=== PATIENT | female | born 1945 | race Caucasian/White ===

== ENCOUNTER 2019-07-10 14:39 | Observation (INO) | payer BC, MEDICARE ==
[~2019-07-10] VITALS: Ht 152.4 cm; Wt 64.5 kg
[~2019-07-10 14:39] MED LIST: ALPR.25 PO; ALPR.5 PO; B-121000 MC2 PO; CALC.25 PO; CHOL10002; Cipro250 MG PO; EFFEXOR PO; FISH1000 PO; FOLI1 PO; FOLI400 PO; FOLTX TABLET1 EACH PO; FURO20 PO; GABA300 PO; GLUCOSAMIN/CHONDROIT PO; HYDACE5 PO; HYDR1TAB94 PO; LAMO25 PO; LEVSOD150 PO; LEVSOD175 PO; LITH300C PO; LITHIUM PO; Lithium Carbon450 MG PO; METO50 PO; METTREX2.5 PO; Micro-K10 MEQ PO; NITR100 PO; NYST100TO TOP; Naprosyn500 MG PO; OMEG1CAP30 PO; OXYACE5T PO; OXYC5 PO; POTCHL10ER PO; PROBIOTIC; QUET25 PO; SODIUM PO; Senna8.6 MG PO; TRAM50 PO; TRAZ150T57; TRAZ150T57 PO; TRAZODONE 150 MG PO; VENL150ER PO; VENL75ER PO; ZOLP10 PO; ZOLP5 PO
[2019-07-10 15:26] LABS: BASOPHILS ABSOLUTE AUTO 0.03 K/mm3 (0.00-0.23); BASOPHILS PERCENT AUTO 0 % (0-2); EOSINOPHILS ABSOLUTE AUTO 0.01 K/mm3 (0.00-0.68); EOSINOPHILS PERCENT AUTO 0 % (0-6); Hematocrit 36.3 % (33.0-51.0); Hemoglobin 11.9 g/dL (11.5-16.0); IMMATURE GRAN ABSOLUTE AUTO 0.05 K/mm3 (0.00-0.10); IMMATURE GRAN PERCENT AUTO 1 % (0-1); LYMPHOCYTES ABSOLUTE AUTO 0.65 K/mm3 (0.84-5.20); LYMPHOCYTES PERCENT AUTO 7 % (21-46); MONOCYTES ABSOLUTE AUTO 0.54 K/mm3 (0.16-1.47); MONOCYTES PERCENT AUTO 5 % (4-13); Mean Corpuscular HGB 28.3 pg (26.0-34.0); Mean Corpuscular HGB Conc 32.8 g/dL (31.5-36.5); Mean Corpuscular Volume 86 fL (80-100); Mean Platelet Volume 10.3 fL (9.1-12.4); NEUTROPHILS ABSOLUTE AUTO 8.67 K/mm3 (1.96-9.15); NEUTROPHILS PERCENT AUTO 87 % (41-73); Platelet Count 264 K/mm3 (150-400); RDW Coefficient Variation 13.1 % (11.7-14.2); RDW Standard Deviation 41.4 fL (35.1-46.3); White Blood Cell Count 9.95 K/mm3 (4.00-11.30)
[2019-07-10 15:42] LABS: International Normalized Ratio 1.02; Prothrombin Time Results 10.9 Sec (9.7-11.5)
[2019-07-10 15:45] LABS: Source, Urine Catheter
[2019-07-10 15:50] LABS: Bilirubin, Urine Neg (Neg); Blood, Urine Neg (Neg); Glucose Qualitative, Urine Neg (Neg); Ketones, Urine 3+ (Neg); Leukocyte Esterase, Urine Neg (Neg); Nitrite, Urine Neg (Neg); Protein, Urine Neg (Neg); Specific Gravity, Urine 1.015 (1.003-1.022); Urobilinogen, Urine NORM (Normal)
[2019-07-10 16:05] LABS: Appearance, Urine Clear (Clear); Color, Urine Pale Yellow (P-Yellow)
[2019-07-10 16:32] LABS: U Amphetamine Screen Not Detected; U Barbituate Screen Not Detected; U Benzodiazapine Screen DETECTED; U Buprenorphine Screen Not Detected; U Cannabinoids Screen Not Detected; U Cocaine Screen Not Detected; U Methadone Screen Not Detected; U Methamphetamine Screen Not Detected; U Opiates Screen Not Detected; U Oxycodone Screen Not Detected; U Phencyclidine Screen Not Detected; U Propoxyphene Screen Not Detected
[2019-07-10 16:38] LABS: Alanine Aminotransfer (ALT/SGP 14 U/L (12-78); Albumin, Blood 3.4 g/dL (3.4-5.0); Alk Phos 116 U/L (50-136); Anion Gap 9 mmol/L (6-16); Aspartate Aminotrans (AST/SGOT 20 U/L (12-37); Bilirubin, Total 1.1 mg/dL (0.1-1.0); Blood Urea Nitrogen 10 mg/dL (8-24); Bun/Creatinine Ratio 20.4 (12.0-20.0); CO2, Blood 22 mmol/L (21-32); Calcium, Blood 9.5 mg/dL (8.5-10.1); Chloride, Blood 97 mmol/L (98-108); Creatinine, Blood 0.49 mg/dL (0.40-1.00); Globulin, Blood 3.3 g/dL (2.2-4.0); Glomerular Filtration Rate >60 (60-); Glucose, Blood 107 mg/dL (70-99); Potassium, Blood 3.9 mmol/L (3.5-5.5); Sodium, Blood 128 mmol/L (136-145); Total Protein, Blood 6.7 g/dL (6.4-8.2)
[2019-07-10 16:42] LABS: Ethanol (Alcohol), Blood, Med <3 mg/dL
[2019-07-10] MEDS ORDERED: ALPR1 PO (20:04)
[2019-07-10] MEDS ORDERED: OLAN10 PO (20:04)
[2019-07-10] MEDS ORDERED: LEVSOD137 PO (20:05)
[2019-07-10] MEDS ORDERED: VENL150ER PO (20:05)
[2019-07-10] MEDS ORDERED: FURO20 PO (20:06)
[2019-07-10] MEDS ORDERED: IBANDRONATE SO150 MG PO (20:06)
[2019-07-10] MEDS ORDERED: POTCHL10ER PO (20:07)
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
[2019-07-11 02:42] LABS: BASOPHILS ABSOLUTE AUTO 0.02 K/mm3 (0.00-0.23); BASOPHILS PERCENT AUTO 0 % (0-2); EOSINOPHILS ABSOLUTE AUTO 0.04 K/mm3 (0.00-0.68); EOSINOPHILS PERCENT AUTO 1 % (0-6); Hematocrit 36.5 % (33.0-51.0); Hemoglobin 11.9 g/dL (11.5-16.0); IMMATURE GRAN ABSOLUTE AUTO 0.02 K/mm3 (0.00-0.10); IMMATURE GRAN PERCENT AUTO 0 % (0-1); LYMPHOCYTES ABSOLUTE AUTO 1.46 K/mm3 (0.84-5.20); LYMPHOCYTES PERCENT AUTO 21 % (21-46); MONOCYTES ABSOLUTE AUTO 0.64 K/mm3 (0.16-1.47); MONOCYTES PERCENT AUTO 9 % (4-13); Mean Corpuscular HGB Conc 32.6 g/dL (31.5-36.5); Mean Corpuscular Volume 86 fL (80-100); Mean Platelet Volume 9.4 fL (9.1-12.4); NEUTROPHILS ABSOLUTE AUTO 4.73 K/mm3 (1.96-9.15); NEUTROPHILS PERCENT AUTO 68 % (41-73); Platelet Count 268 K/mm3 (150-400); RDW Coefficient Variation 13.2 % (11.7-14.2); RDW Standard Deviation 41.4 fL (35.1-46.3); Red Blood Cell Count 4.25 M/mm3 (3.80-5.20); White Blood Cell Count 6.91 K/mm3 (4.00-11.30)
[2019-07-11 03:17] LABS: Troponin I 0.068 ng/mL (0.000-0.040)
[2019-07-11 03:27] LABS: Albumin, Blood 3.3 g/dL (3.4-5.0); Anion Gap 5 mmol/L (6-16); Blood Urea Nitrogen 8 mg/dL (8-24); Bun/Creatinine Ratio 14.8 (12.0-20.0); CO2, Blood 26 mmol/L (21-32); Calcium, Blood 9.9 mg/dL (8.5-10.1); Chloride, Blood 113 mmol/L (98-108); Creatinine, Blood 0.54 mg/dL (0.40-1.00); Glomerular Filtration Rate >60 (60-); Glucose, Blood 117 mg/dL (70-99); Phosphorus, Blood 2.2 mg/dL (2.5-4.9); Potassium, Blood 3.7 mmol/L (3.5-5.5)
[2019-07-11 03:28] LABS: Sodium, Blood 144 mmol/L (136-145)
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
[2019-07-11] MEDS ORDERED: LEVSOD50 PO (15:53)
[2019-07-11] MEDS ORDERED: CYAFAPYR PO (15:55)
[2019-07-11] MEDS ORDERED: THERA-D2000 UNIT PO (15:56)
[2019-07-11] MEDS ORDERED: FOLI400 PO (15:56)
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
== END 2019-07-11 17:26 | disposition home health service (06) ==
LOC: ER 14:39 → MEDS 14:40
PROVIDERS: Physician Assistant; ADMIT Internal Medicine
DX: E87.1 Hypo-osmolality and hyponatremia (principal); E86.0 Dehydration; R47.1 Dysarthria and anarthria; E05.80 Other thyrotoxicosis without thyrotoxic crisis or storm; R79.9 Abnormal finding of blood chemistry, unspecified; F31.9 Bipolar disorder, unspecified; E03.9 Hypothyroidism, unspecified; I10 Essential (primary) hypertension; Z87.891 Personal history of nicotine dependence; Z88.8 Allergy status to other drugs, medicaments and biological substances; Z88.2 Allergy status to sulfonamides; Z79.899 Other long term (current) drug therapy
CPT/HCPCS: 36415; 70450; 71046; 80053; 80069; 81003; 84439; 84443; 84484; 85025; 85610; 93005; 93010; 93306; 93880; 96360; 96361; 96372; 97116; 97162; 99285-25; A9270-GY; G0378; G0480; J1650; J7030

== ENCOUNTER 2019-08-01 11:29 | Emergency (ER) | payer BC, MEDICARE ==
[~2019-08-01] VITALS: Ht 152.4 cm; Wt 63.5 kg
[~2019-08-01 11:29] MED LIST changes: +ALPR1 PO; +CYAFAPYR PO; +IBANDRONATE SO150 MG PO; +LEVSOD137 PO; +LEVSOD50 PO; +OLAN10 PO; +THERA-D2000 UNIT PO
[2019-08-01] MEDS ORDERED: Nyamyc15 GM TOP (11:36)
[2019-08-01] MEDS ORDERED: Nystatin15 GM TOP (11:36)
[2019-08-01 11:42] LABS: Source, Urine Catheter
[2019-08-01 11:55] LABS: Bilirubin, Urine Neg (Neg); Blood, Urine Neg (Neg); Glucose Qualitative, Urine Neg (Neg); Ketones, Urine Neg (Neg); Leukocyte Esterase, Urine Neg (Neg); Nitrite, Urine Neg (Neg); Protein, Urine Neg (Neg); Urobilinogen, Urine NORM (Normal)
[2019-08-01 12:10] LABS: Appearance, Urine Clear (Clear); Color, Urine Yellow (P-Yellow)
== END 2019-08-01 13:55 | disposition home or self-care (01) ==
LOC: ER 11:29
PROVIDERS: Emergency Medicine
DX: R62.7 Adult failure to thrive (principal); R21 Rash and other nonspecific skin eruption; R53.1 Weakness; Z88.2 Allergy status to sulfonamides; Z88.8 Allergy status to other drugs, medicaments and biological substances; Z79.899 Other long term (current) drug therapy; F31.9 Bipolar disorder, unspecified; E03.9 Hypothyroidism, unspecified; Z87.891 Personal history of nicotine dependence; Z72.3 Lack of physical exercise; Z96.651 Presence of right artificial knee joint; W18.30XA Fall on same level, unspecified, initial encounter
CPT/HCPCS: 81003; 99284; P9612

== ENCOUNTER 2019-08-23 15:22 | Emergency (ER) | payer BC, MEDICARE ==
[~2019-08-23] VITALS: Ht 160 cm; Wt 56.7 kg
[~2019-08-23 15:22] MED LIST changes: +Nyamyc15 GM TOP; +Nystatin15 GM TOP
[2019-08-23] MEDS ORDERED: FUROSEMIDE20 MG PO (15:31)
[2019-08-23] MEDS ORDERED: K-Dur10 MEQ (15:31)
== END 2019-08-23 18:20 | disposition home or self-care (01) ==
LOC: ER 15:22
DX: S80.01XA Contusion of right knee, initial encounter (principal); F31.9 Bipolar disorder, unspecified; Z87.891 Personal history of nicotine dependence; Z88.2 Allergy status to sulfonamides; Z88.8 Allergy status to other drugs, medicaments and biological substances; Z79.899 Other long term (current) drug therapy; W19.XXXA Unspecified fall, initial encounter
CPT/HCPCS: 73562-RT; 99283-25; A9270

== ENCOUNTER 2022-10-28 19:48 | Inpatient (IN) | payer MEDICARE ==
[~2022-10-28] VITALS: Ht 157.5 cm; Wt 58.4 kg
[~2022-10-28 19:48] MED LIST changes: +FUROSEMIDE20 MG PO; +K-Dur10 MEQ
[2022-10-28 20:19] LABS: BASOPHILS ABSOLUTE AUTO 0.04 K/mm3 (0.00-0.23); BASOPHILS PERCENT AUTO 1 % (0-2); EOSINOPHILS ABSOLUTE AUTO 0.04 K/mm3 (0.00-0.68); EOSINOPHILS PERCENT AUTO 1 % (0-6); Hematocrit 36.8 % (33.0-51.0); Hemoglobin 12.1 g/dL (11.5-16.0); IMMATURE GRAN ABSOLUTE AUTO 0.01 K/mm3 (0.00-0.10); IMMATURE GRAN PERCENT AUTO 0 % (0-1); LYMPHOCYTES PERCENT AUTO 20 % (21-46); MONOCYTES ABSOLUTE AUTO 0.42 K/mm3 (0.16-1.47); MONOCYTES PERCENT AUTO 8 % (4-13); Mean Corpuscular HGB 27.7 pg (26.0-34.0); Mean Corpuscular HGB Conc 32.9 g/dL (31.5-36.5); Mean Corpuscular Volume 84 fL (80-100); Mean Platelet Volume 9.9 fL (9.1-12.4); NEUTROPHILS ABSOLUTE AUTO 3.55 K/mm3 (1.96-9.15); NEUTROPHILS PERCENT AUTO 70 % (41-73); Platelet Count 257 K/mm3 (150-400); RDW Coefficient Variation 13.4 % (11.7-14.2); RDW Standard Deviation 41.7 fL (35.1-46.3); Red Blood Cell Count 4.37 M/mm3 (3.80-5.20); White Blood Cell Count 5.06 K/mm3 (4.00-11.30)
[2022-10-28 20:35] LABS: Bicarbonate Venous 15.2 mmol/L (24.0-30.0); PCO2 Venous 17.8 mmHg (38-42); pH Blood Venous 7.42 (7.34-7.37)
[2022-10-28 20:44] LABS: Source, Urine Straight Cath
[2022-10-28 20:46] LABS: International Normalized Ratio 1.36
[2022-10-28 20:46] LABS: Appearance, Urine Clear (Clear); Bilirubin, Urine Neg (Neg); Blood, Urine Neg (Neg); Color, Urine Yellow (P-Yellow); Glucose Qualitative, Urine Neg (Neg); Ketones, Urine 1+ (Neg); Leukocyte Esterase, Urine Neg (Neg); Nitrite, Urine Neg (Neg); Protein, Urine Neg (Neg); Urobilinogen, Urine NORM (Normal)
[2022-10-28 20:49] LABS: Magnesium, Blood 1.8 mg/dL (1.6-2.4); Salicylate <1.7 mg/dL (2.8-20.0); Thyroid Stimulating Hormone 0.343 uIU/mL (0.360-4.800); Valproic Acid 11.5 ug/mL (50.0-100.0)
[2022-10-28 20:51] LABS: Alanine Aminotransfer (ALT/SGP 21 U/L (12-78); Albumin, Blood 3.9 g/dL (3.4-5.0); Albumin/Globulin Ratio 1.2 (0.8-1.8); Alk Phos 136 U/L (50-136); Anion Gap 9 mmol/L (6-16); Aspartate Aminotrans (AST/SGOT 16 U/L (12-37); Bilirubin, Total 0.8 mg/dL (0.1-1.0); Blood Urea Nitrogen 12 mg/dL (8-24); Bun/Creatinine Ratio 17.5 (12.0-20.0); CO2, Blood 23 mmol/L (21-32); Calcium, Blood 9.9 mg/dL (8.5-10.1); Chloride, Blood 109 mmol/L (98-108); Creatinine, Blood 0.69 mg/dL (0.40-1.00); Globulin, Blood 3.2 g/dL (2.2-4.0); Glomerular Filtration Rate 89 (60-); Glucose, Blood 126 mg/dL (70-99); Potassium, Blood 3.5 mmol/L (3.5-5.5); Sodium, Blood 141 mmol/L (136-145); Total Protein, Blood 7.1 g/dL (6.4-8.2)
[2022-10-28 20:52] LABS: Acetaminophen, Random <2.0 ug/mL (10.0-30.0)
[2022-10-28] MEDS ORDERED: VENL150ER PO (21:22)
[2022-10-28] MEDS ORDERED: LEVSOD100 PO (21:22)
[2022-10-28] MEDS ORDERED: OLAN20 MM (21:23)
[2022-10-28] MEDS ORDERED: ZOLPIDEM TART12.5 MG PO (21:23)
[2022-10-28] MEDS ORDERED: DIVA250ER PO (21:24)
[2022-10-28] MEDS ORDERED: FURO20 PO (21:24)
[2022-10-28] MEDS ORDERED: POTA10T PO (21:25)
[2022-10-28 23:03] LABS: Free Thyroxine 1.39 ng/dL (0.70-1.60); Triiodothyronine, Free 1.04 pg/mL (2.18-3.98)
[2022-10-29] VITALS (12 sets, daily range): BP systolic 121–148; BP diastolic 57–100
--- NOTE | 2022-10-29 03:26 | NUR ---
PT TO ROOM ICU 14 FROM EMERGENCY DEPARTMENT, ARRIVING AT 0245. SLIDE TRANSFERRED TO BED. PT DOES OPEN EYES AND REACHES OUT. PT DOES NOT FOLLOW ANY COMMANDS. RESISTS CARE. TRIES TO SIT UPRIGHT IN BED WITHOUT REGARD TO HER SAFETY. PT PLACED WITH CURTAINS TO ROOM OPEN TO ALLOW FOR BETTER VISUALIZATION OF PATIENT FOR HER SAFETY. BED ALARM PLACED ON BED. WILL REVIEW CHART AND PLAN OF CARE FOR THIS PT.
[2022-10-29 03:48] LABS: BASOPHILS ABSOLUTE AUTO 0.05 K/mm3 (0.00-0.23); BASOPHILS PERCENT AUTO 1 % (0-2); EOSINOPHILS ABSOLUTE AUTO 0.02 K/mm3 (0.00-0.68); EOSINOPHILS PERCENT AUTO 0 % (0-6); Hematocrit 31.3 % (33.0-51.0); Hemoglobin 10.5 g/dL (11.5-16.0); IMMATURE GRAN ABSOLUTE AUTO 0.01 K/mm3 (0.00-0.10); IMMATURE GRAN PERCENT AUTO 0 % (0-1); LYMPHOCYTES ABSOLUTE AUTO 0.79 K/mm3 (0.84-5.20); LYMPHOCYTES PERCENT AUTO 12 % (21-46); MONOCYTES ABSOLUTE AUTO 0.48 K/mm3 (0.16-1.47); MONOCYTES PERCENT AUTO 7 % (4-13); Mean Corpuscular HGB 28.3 pg (26.0-34.0); Mean Corpuscular HGB Conc 33.5 g/dL (31.5-36.5); Mean Corpuscular Volume 84 fL (80-100); Mean Platelet Volume 9.8 fL (9.1-12.4); NEUTROPHILS ABSOLUTE AUTO 5.38 K/mm3 (1.96-9.15); NEUTROPHILS PERCENT AUTO 80 % (41-73); Platelet Count 209 K/mm3 (150-400); RDW Coefficient Variation 13.4 % (11.7-14.2); RDW Standard Deviation 41.6 fL (35.1-46.3); Red Blood Cell Count 3.71 M/mm3 (3.80-5.20); White Blood Cell Count 6.73 K/mm3 (4.00-11.30)
[2022-10-29 04:18] LABS: Bilirubin, Total 0.5 mg/dL (0.1-1.0); Bun/Creatinine Ratio 14.4 (12.0-20.0); Calcium, Blood 8.3 mg/dL (8.5-10.1); Creatinine, Blood 0.63 mg/dL (0.40-1.00); Globulin, Blood 2.9 g/dL (2.2-4.0); Potassium, Blood 3.3 mmol/L (3.5-5.5); Total Protein, Blood 5.9 g/dL (6.4-8.2)
--- NOTE | 2022-10-29 05:13 | NUR ---
PT HAS BEEN SLEEPING SOME THEN AWAKENS AND TRIES TO SIT UP IN BED. PULLS AT LINES AND TUBES. PT'S EFFORTS ARE WEAK. MAINTAINING CLOSE MONIORING OF PT. SHE IS NOT ABLE TO FOLLOW ANY DIRECTIONS AT THIS TIME. NO S/S DISTRESS. CALL MADE TO DR SCHULTE CONCERNING THIS AM'S LABS. ORDERS RECEIVED. WILL CONTINUE TO MONITOR PT, AND WILL REPORT OFF TO ONCOMING RN.
--- NOTE | 2022-10-29 10:26 | NUR ---
PT STARTLES AWAKE TO VOICE BUT QUICKLY GOES BACK TO SLEEP AND SLEEPS UNTIL DISTRUBED. DOES NOT FOLLOW ANY COMMANDS. LOCALIZES PAIN. MOVES EXTREMITIES SPONTANEOUSLY AND MOVES SELF FROM BACK TO R SIDE IN BED. HAS JERKING MOVEMENTS OF EXTREMITIES WHEN AWAKE. GOOD URINE OUTPUT WITH PUREWICK. PT TRANSFERED TO PCU 3, REPORT GIVEN TO CASSIE WOLF.
--- NOTE | 2022-10-29 11:53 | NUR ---
CARE ASSUMPTION This rn assumed care at 1017. patient transfered from icu bed via slider sheet. patient is nonresponsive, but is alert. responds to painful stimuli. patient appears to be pain free, chest pain free, and no shortness of breath. see shift assessment for further detials. md segal in room to see patient. jose manuel in placed and changed this shift. plan of care is up to date. patient has remote monitoring in place.
--- NOTE | 2022-10-29 13:02 | NUR ---
low temperature-call to doc this rn called me tlaang to inform of patients core temperature at 94.7. kermit huger in place, heat turned up in room, and warm blanket on.
--- NOTE | 2022-10-29 18:38 | NUR ---
shift summary patient neuro remains unchaged. patient is still no responsive, expect to verbal stimuli. patient kermit hugger off due to temperature being therapuetic now. kermit hugger removed at 1830. vital signs stable. call light within reach. plan of care is up to date.
[2022-10-30 05:01] LABS: Hematocrit 32.4 % (33.0-51.0); Hemoglobin 10.7 g/dL (11.5-16.0); Mean Corpuscular HGB 28.2 pg (26.0-34.0); Mean Corpuscular Volume 85 fL (80-100); Mean Platelet Volume 10.2 fL (9.1-12.4); Platelet Count 230 K/mm3 (150-400); RDW Coefficient Variation 13.9 % (11.7-14.2); RDW Standard Deviation 43.3 fL (35.1-46.3)
[2022-10-30 05:15] VITALS: BP 145/79
--- NOTE | 2022-10-30 05:32 | NUR ---
SHIFT SUMMARY LETHARGIC DURING BEGINNING OF SHIFT, MOANING OUT OFTEN AND PULLING ON TELE, REQUIRING A 1:1 SITTER. MUCH MORE ALERT THIS AM, ABLE TO STATE SHE IS IN THE HOSPITAL, MUMBLED SPEECH BUT ABLE TO SPEAK IN SENTENCES. SPO2 >92% ON RA. TELE SR 70-90S. IV FLUIDS INFUSING PER EMAR. VSS, NO ACUTE NEEDS AT THIS TIME. BED IN LOWEST POSITION WITH CALL LIGHT IN REACH. WILL CONTINUE TO MONITOR AND REPORT TO ONCOMING RN.
[2022-10-30 05:40] LABS: Bun/Creatinine Ratio 7.7 (12.0-20.0); Calcium, Blood 9.4 mg/dL (8.5-10.1); Creatinine, Blood 0.65 mg/dL (0.40-1.00); Potassium, Blood 3.4 mmol/L (3.5-5.5)
[2022-10-30 08:44] VITALS: BP 137/64
[2022-10-30 11:22] VITALS: BP 143/62
--- NOTE | 2022-10-30 11:26 | NUR ---
CARE ASSUMPTION this rn assumed care at 0700. vital signs stable. sitter in room due to pulling at lines and getting out of bed. this has improved and going to go back to virtual sitter. patient is alert and oriented x3. patient is forgetful and confused at times. patient reports no pain, shortness of breath or chest pain/pressure. see shift assessment for furhter detials. md segal in to see patient this morning. discussed plan of care. plan of care up to date.
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
[2022-10-30 15:12] VITALS: BP 148/68
--- NOTE | 2022-10-30 17:24 | NUR ---
shift summary patient neuro remains unchaged. vital signs stable. patient worked with speech and physical therapy today. patient straight cathed once due to not being able to pee, bladder scan showed >400 output. informed md segal. patient has had an episodes on incontinence since then. patient become more anxious, pulling at lines and trying to get out of bed this afternoon/early evening. called md segal, see orders. patient is able to feed herself dinner. plan of care is up to date. no acute changes this shift. updated on plan of care and was in to see patient today.
[2022-10-30 20:19] VITALS: BP 157/75
[2022-10-30 23:36] VITALS: BP 133/69
[2022-10-31 03:56] VITALS: BP 157/67
[2022-10-31 04:39] LABS: Bun/Creatinine Ratio 10.5 (12.0-20.0); Calcium, Blood 9.6 mg/dL (8.5-10.1); Creatinine, Blood 0.67 mg/dL (0.40-1.00); Potassium, Blood 3.8 mmol/L (3.5-5.5)
--- NOTE | 2022-10-31 05:33 | NUR ---
SHIFT SUMMARY PATIENT ALERT AND ORIENTED X3. ABLE TO MAKE NEEDS KNOWN. SITTER IN ROOM FOR SAFETY D/T INCREASED CONFUSION THE PREVIOUS NOC SHIFT. PATIENT NEEDED STRAIGHT CATH DURING THIS SHIFT D/T RETENTION. PT TOLERATED WELL. VITALS STABLE. PATIENT CALM AND COOPERATIVE WITH CARE. VIRTUAL PRODUCTION ZONE LEADER IN PLACE. FIRE/IGNITION SAFETY ASSESSMENT AND EDUCATION COMPLETED. PUREWICK IN PLACE WITH 700 MLS OF OUTPUT NOTED. BED IN LOWEST POSITION AND CALL LIGHT WITHIN REACH. THIS RN WILL REPORT TO ONCOMING RN.
[2022-10-31 08:10] VITALS: BP 114/99
[2022-10-31 12:09] VITALS: BP 122/82
[2022-10-31 16:02] VITALS: BP 164/77
--- NOTE | 2022-10-31 17:27 | NUR ---
SHIFT SUMMARY; ASSUMED CARE AT 0700. A/A/OX3 WITH INTERMITANT CONFUSION. SPOUSE AT BEDSIDE TODAY AND STATES AT TIMES IS LIKE THIS AT HOME. FEEDS SELF TODAY AND TAKES PO FLUIDS INDEPENDANTLY. PURWICK IN PLACE WITH GOOD OUTPUT T/O SHIFT. SITTER AT BEDSIDE DUE TO CONFUSION AND CLIMBING OUT OF BED LAST NOC. CALM AND COOPERATIVE TODAY. VSS, NO ACUTE MEDICAL CHANGES, WILL CONTINUE TO MONITOR AND TREAT UNTIL CHANGE OF SHIFT.
[2022-10-31 19:57] VITALS: BP 132/72
[2022-10-31 23:48] VITALS: BP 158/64
[2022-11-01 04:17] VITALS: BP 119/59
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
[2022-11-01 04:51] LABS: Hematocrit 35.8 % (33.0-51.0); Hemoglobin 11.7 g/dL (11.5-16.0); Mean Corpuscular HGB 28.3 pg (26.0-34.0); Mean Corpuscular HGB Conc 32.7 g/dL (31.5-36.5); Mean Corpuscular Volume 87 fL (80-100); Mean Platelet Volume 10.2 fL (9.1-12.4); Platelet Count 239 K/mm3 (150-400); RDW Coefficient Variation 13.8 % (11.7-14.2); RDW Standard Deviation 43.9 fL (35.1-46.3); Red Blood Cell Count 4.14 M/mm3 (3.80-5.20); White Blood Cell Count 6.55 K/mm3 (4.00-11.30)
[2022-11-01 05:14] LABS: Calcium, Blood 9.5 mg/dL (8.5-10.1); Creatinine, Blood 0.67 mg/dL (0.40-1.00); Potassium, Blood 3.8 mmol/L (3.5-5.5)
[2022-11-01 07:44] VITALS: BP 145/71
[2022-11-01 15:15] VITALS: BP 122/71
--- NOTE | 2022-11-01 17:25 | NUR ---
SHIFT SUMMARY; ASSUMED CARE AT 0700. A/A/OX3, INTERMITANT CONFUSION AT TIMES. FEEDING SELF, REPOSITIONS SELF ON BED, PURWICK INPLACE FOR INCONTINANCE. WORKED WITH PT/OT TODAY. VSS, NO ACUTE MEDICAL CHANGES, WILL CONTINUE TO MONITOR AND TREAT UNTIL CHANGE OF SHIFT.
--- NOTE | 2022-11-01 17:50 | NUR ---
PT ARRIVED TO ROOM AT 1650. NO DISTRESS NOTED AND COOPERATIVE OF CARE. AOX3 AND ABLE TO MAKE NEEDS KNOWN. BED ALARM IN PLACE AND CALL WITHIN REACH . WILL CONTINUE TO MONITOR. NO IGNITION HAZARDS TO BE FOUND AND HAVE BEEN EVALUATED HOURLY.
[2022-11-01 19:44] VITALS: BP 130/68
[2022-11-02 03:28] VITALS: BP 170/75
[2022-11-02 03:30] VITALS: BP 142/70
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
[2022-11-02 07:36] VITALS: BP 178/70
[2022-11-02 14:45] VITALS: BP 117/64
--- NOTE | 2022-11-02 19:05 | NUR ---
PT DISCHARGED LATE TODAY RIGHT BEFORE SHIFT CHANGE HAD PUT HIS HOME PHONE ON MUTE. PT'S HAD ALL PAPERWORK REVIEWED AND EDUCATIONAL MATERIAL SENT WITH HIM. PT WAS A 1 PERSON TO STAND AND GET TO WHEELCHAIR. ALL PERSONAL BELONGINGS COLLECTED AND SENT WITH PT. PT ESCORTED OUT VIA WHEELCHAIR TO ENTRANCE.
== END 2022-11-02 18:55 | disposition home health service (06) | DRG 93 ==
LOC: ER 19:48 → PCU 10-29 01:53 → MEDS 10-29 01:53 → ICUE 10-29 01:53 → PCU 10-29 10:18 → MEDS 11-01 17:11 → ENPENDDIS 11-02 10:52 → MEDS 11-02 18:55
PROVIDERS: Internal Medicine; Student in an Organized Health Care Education/Training Program; ADMIT Internal Medicine
DX: G92.8 Other toxic encephalopathy (principal); R41.82 Altered mental status, unspecified; G89.29 Other chronic pain; M54.9 Dorsalgia, unspecified; E03.9 Hypothyroidism, unspecified; R13.10 Dysphagia, unspecified; T43.95XA Adverse effect of unspecified psychotropic drug, initial encounter; I10 Essential (primary) hypertension; F32.9 Major depressive disorder, single episode, unspecified; Z96.651 Presence of right artificial knee joint; Z87.891 Personal history of nicotine dependence; Z98.890 Other specified postprocedural states; Z88.2 Allergy status to sulfonamides; Z88.8 Allergy status to other drugs, medicaments and biological substances; Z79.890 Hormone replacement therapy; Z79.899 Other long term (current) drug therapy
CPT/HCPCS: 36415; 51701; 70450; 71045; 80048; 80053; 80164; 81003; 82140; 82803; 82947; 83605; 83735; 84439; 84443; 84481; 85025; 85027; 85610; 87040; 92526; 92610; 93005; 93010; 96361-59; 96365-59; 96366-59; 96375-59; 97110; 97110-CQ; 97116-CQ; 97161; 97165; 97530; 97535; 99285-25; A9270; G0480; J0696; J1650; J2310; J3480; J7030; J7070

== ENCOUNTER 2022-11-17 16:10 | Inpatient (IN) | payer MEDICARE ==
[~2022-11-17] VITALS: Ht 157.5 cm; Wt 49.9 kg
[~2022-11-17 16:10] MED LIST changes: +DIVA250ER PO; +LEVSOD100 PO; +OLAN20 MM; +POTA10T PO; +ZOLPIDEM TART12.5 MG PO
[2022-11-17 16:57] LABS: BASOPHILS ABSOLUTE AUTO 0.05 K/mm3 (0.00-0.23); BASOPHILS PERCENT AUTO 0 % (0-2); EOSINOPHILS PERCENT AUTO 0 % (0-6); Hematocrit 41.3 % (33.0-51.0); Hemoglobin 12.9 g/dL (11.5-16.0); IMMATURE GRAN ABSOLUTE AUTO 0.04 K/mm3 (0.00-0.10); IMMATURE GRAN PERCENT AUTO 0 % (0-1); LYMPHOCYTES ABSOLUTE AUTO 1.05 K/mm3 (0.84-5.20); LYMPHOCYTES PERCENT AUTO 9 % (21-46); MONOCYTES PERCENT AUTO 8 % (4-13); Mean Corpuscular HGB 27.6 pg (26.0-34.0); Mean Corpuscular HGB Conc 31.2 g/dL (31.5-36.5); Mean Corpuscular Volume 88 fL (80-100); Mean Platelet Volume 10.4 fL (9.1-12.4); NEUTROPHILS ABSOLUTE AUTO 9.21 K/mm3 (1.96-9.15); NEUTROPHILS PERCENT AUTO 82 % (41-73); Platelet Count 299 K/mm3 (150-400); RDW Coefficient Variation 14.6 % (11.7-14.2); Red Blood Cell Count 4.68 M/mm3 (3.80-5.20); White Blood Cell Count 11.25 K/mm3 (4.00-11.30)
[2022-11-17 17:16] LABS: Albumin, Blood 3.8 g/dL (3.4-5.0); Bun/Creatinine Ratio 34.4 (12.0-20.0); Calcium, Blood 11.3 mg/dL (8.5-10.1); Creatinine, Blood 1.31 mg/dL (0.40-1.00); Potassium, Blood 3.5 mmol/L (3.5-5.5); Total Protein, Blood 7.8 g/dL (6.4-8.2)
[2022-11-17 18:00] LABS: Source, Urine Straight Cath
[2022-11-17 18:27] LABS: Appearance, Urine Clear (Clear); Bilirubin, Urine Neg (Neg); Blood, Urine Neg (Neg); Color, Urine Yellow (P-Yellow); Glucose Qualitative, Urine Neg (Neg); Ketones, Urine 1+ (Neg); Leukocyte Esterase, Urine Neg (Neg); Nitrite, Urine Neg (Neg); Protein, Urine 2+ (Neg); Specific Gravity, Urine 1.025 (1.003-1.022); Urobilinogen, Urine NORM (Normal)
[2022-11-17 18:34] LABS: Amorphous Light (0-Heavy); Bacteria Mod /hpf; Red Blood Cells, Urine Not Seen /hpf (0-2); Squamous Epithelial Cells Rare /hpf (Few); White Blood Cells, Urine 0-2 /hpf (0-5)
[2022-11-17 19:03] LABS: Magnesium, Blood 2.8 mg/dL (1.6-2.4)
[2022-11-17 19:05] LABS: Thyroid Stimulating Hormone 0.141 uIU/mL (0.360-4.800)
[2022-11-17 20:47] LABS: Anion Gap 6 mmol/L (6-16); Blood Urea Nitrogen 41 mg/dL (8-24); Bun/Creatinine Ratio 37.3 (12.0-20.0); CO2, Blood 24 mmol/L (21-32); Chloride, Blood 129 mmol/L (98-108); Free Thyroxine 1.83 ng/dL (0.70-1.60); Glomerular Filtration Rate 51 (60-); Glucose, Blood 100 mg/dL (70-99); Potassium, Blood 3.6 mmol/L (3.5-5.5); Sodium, Blood 159 mmol/L (136-145); Valproic Acid 20.1 ug/mL (50.0-100.0)
[2022-11-17] MEDS ORDERED: ALPR.5 PO (21:46)
[2022-11-17] MEDS ORDERED: POTA10T PO (21:47)
[2022-11-17] MEDS ORDERED: FURO20 PO (21:49)
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
[2022-11-17 22:50] VITALS: BP 155/58
[2022-11-18 01:05] LABS: Adenovirus Not Detected (NOT DETECT); Bordetella pertussis Not Detected (NOT DETECT); Chlamydophila pneumoniae Not Detected (NOT DETECT); Coronavirus 229E Not Detected (NOT DETECT); Coronavirus HKU1 Not Detected (NOT DETECT); Coronavirus NL63 Not Detected (NOT DETECT); Coronavirus OC43 Not Detected (NOT DETECT); Human Metapneumovirus Not Detected (NOT DETECT); Human Rhinovirus/Enterovirus Not Detected (NOT DETECT); Influenza A/2009-H1 Not Detected (NOT DETECT); Influenza A/H1 Not Detected (NOT DETECT); Influenza A/H3 Not Detected (NOT DETECT); Influenza B Not Detected (NOT DETECT); Mycoplasma pneumoniae Not Detected (NOT DETECT); Parainfluenza Virus 1 Not Detected (NOT DETECT); Parainfluenza Virus 2 Not Detected (NOT DETECT); Parainfluenza Virus 3 Not Detected (NOT DETECT); Parainfluenza Virus 4 Not Detected (NOT DETECT); Respiratory Syncytial Virus Not Detected (NOT DETECT); SARS-Cov-2 (COVID-19), BioFire Not Detected (NOT DETECT)
[2022-11-18 01:10] LABS: Hematocrit 39.1 % (33.0-51.0); Hemoglobin 12.3 g/dL (11.5-16.0); Mean Corpuscular HGB 27.7 pg (26.0-34.0); Mean Corpuscular HGB Conc 31.5 g/dL (31.5-36.5); Mean Corpuscular Volume 88 fL (80-100); Mean Platelet Volume 10.5 fL (9.1-12.4); Platelet Count 213 K/mm3 (150-400); RDW Coefficient Variation 14.5 % (11.7-14.2); RDW Standard Deviation 46.3 fL (35.1-46.3); Red Blood Cell Count 4.44 M/mm3 (3.80-5.20); White Blood Cell Count 12.29 K/mm3 (4.00-11.30)
[2022-11-18 01:26] LABS: Magnesium, Blood 2.4 mg/dL (1.6-2.4)
[2022-11-18 01:42] LABS: Bun/Creatinine Ratio 39.2 (12.0-20.0); Calcium, Blood 9.8 mg/dL (8.5-10.1); Creatinine, Blood 1.02 mg/dL (0.40-1.00); Potassium, Blood 3.2 mmol/L (3.5-5.5)
[2022-11-18 02:46] VITALS: BP 144/66
--- NOTE | 2022-11-18 04:26 | NUR ---
SHIFT SUMMARY; NO ACUTE CHANGES SINCE ADMIT. THE PT HAS BEEN RESTING IN BED SINCE ADMIT, OCCASIONALLY THE PT ATTEMPTS OOB BUT SHE IS SOMEWHAT REDIRECTABLE. THE PT HAS A 1;1 SITTER IN HER ROOM. THE PTS NA WENT UP FROM 159 TO 162, PER DR. SCHULTE CHANGE PTS FLUIDS TO JUST D-5 AT 100 MLS/HR X1.5L. THE PT IS STILL NON-VERBAL AT THIS TIME BUT SHE DOES FOLLOW COMMANDS AND LOOKS AT YOU WHEN YOU ARE TALKING TO HER. THE PT DENIES ANY CHEST PAIN/PRESSURE, SOB OR N/V. THE PT DOES NOT APPEAR TO BE IN ANY PAIN AT THIS TIME WELL. CURRENTLY THE PT IS SLEEPING IN BED WITH THE BED IN THE LOWEST POSITION AND THE CALL LIGHT AT BEDSIDE. FIRE SAFETY MAINTAINED T/O THE SHIFT.
[2022-11-18 06:31] LABS: Albumin, Blood 3.2 g/dL (3.4-5.0); Calcium, Blood 9.9 mg/dL (8.5-10.1); Creatinine, Blood 0.84 mg/dL (0.40-1.00); Globulin, Blood 3.1 g/dL (2.2-4.0); Potassium, Blood 3.1 mmol/L (3.5-5.5); Total Protein, Blood 6.3 g/dL (6.4-8.2)
[2022-11-18 09:32] VITALS: BP 153/74
[2022-11-18 11:54] LABS: Albumin, Blood 3.1 g/dL (3.4-5.0); Bilirubin, Total 0.9 mg/dL (0.1-1.0); Bun/Creatinine Ratio 39.5 (12.0-20.0); Creatinine, Blood 0.76 mg/dL (0.40-1.00); Globulin, Blood 3.1 g/dL (2.2-4.0); Potassium, Blood 3.1 mmol/L (3.5-5.5); Total Protein, Blood 6.2 g/dL (6.4-8.2)
[2022-11-18 14:31] VITALS: BP 151/67
[2022-11-18 17:19] LABS: Albumin, Blood 3.4 g/dL (3.4-5.0); Bun/Creatinine Ratio 39.4 (12.0-20.0); Calcium, Blood 10.2 mg/dL (8.5-10.1); Creatinine, Blood 0.64 mg/dL (0.40-1.00); Globulin, Blood 3.4 g/dL (2.2-4.0); Potassium, Blood 3.1 mmol/L (3.5-5.5); Total Protein, Blood 6.8 g/dL (6.4-8.2)
--- NOTE | 2022-11-18 19:43 | NUR ---
SHIFT SUMMARY: PT A&O X1-2. PT COOPERATIVE WITH CARE. RECEIVED IN REPORT PT HAD NOT VOIDED SINCE ADMISSION. PUREWICK WAS IN PLACE BUT NOTHING DRAINED. BLADDER SCANNED PT AROUND 1000 WITH A URINE OF OVER 500. ATTEMPTED TO HAVE PT VOID ON BEDSIDE COMMODE WITH NO SUCCESS. RECEIVED ORDER FOR STRAIGHT CATH. WHEN ATTEMPTING TO STRAIGHT CATH, PT FOUGHT BACK AND CLOSED LEGS TIGHTLY WHILE YELLING OUT "HELP." GAVE PT A BREAK. PT FINALLY ABLE TO URINATE AND HAVE LG BM. AT BEGINNING OF SHIFT PT ONLY ABLE TO ANSWER YES/NO. PT ABLE TO ANSWER SOME QUESTIONS AT END OF SHIFT. PT WOULD COUGH/CHOKE EVERY TIME TAKING BITE OF REGULAR FOOD OR WITH THIN LIQUIDS. CALLED HOSPITALIST AND GOT ORDER FOR SPEECH EVAL. MEPILEX PLACED ON COCCYX. COCCYX BLANCHABLE. NEW MEPILEX PLACED ON LUMP ON UPPER BACK AND R. ELBOW FOR PROTECTION. SITTER IN ROOM DURING SHIFT. CALL LIGHT IN REACH. BED IN LOWEST POSITION. REPORT GIVEN TO ONCOMING RN.
[2022-11-18 19:58] VITALS: BP 101/73
[2022-11-18 23:36] LABS: Albumin, Blood 2.8 g/dL (3.4-5.0); Bilirubin, Total 0.8 mg/dL (0.1-1.0); Bun/Creatinine Ratio 32.4 (12.0-20.0); Calcium, Blood 9.5 mg/dL (8.5-10.1); Creatinine, Blood 0.62 mg/dL (0.40-1.00); Globulin, Blood 2.8 g/dL (2.2-4.0); Potassium, Blood 3.5 mmol/L (3.5-5.5); Total Protein, Blood 5.6 g/dL (6.4-8.2)
[2022-11-19 04:48] VITALS: BP 117/56
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
[2022-11-19 05:22] LABS: BASOPHILS ABSOLUTE AUTO 0.03 K/mm3 (0.00-0.23); BASOPHILS PERCENT AUTO 0 % (0-2); EOSINOPHILS ABSOLUTE AUTO 0.13 K/mm3 (0.00-0.68); EOSINOPHILS PERCENT AUTO 2 % (0-6); Hemoglobin 11.6 g/dL (11.5-16.0); IMMATURE GRAN ABSOLUTE AUTO 0.03 K/mm3 (0.00-0.10); IMMATURE GRAN PERCENT AUTO 0 % (0-1); LYMPHOCYTES ABSOLUTE AUTO 1.45 K/mm3 (0.84-5.20); LYMPHOCYTES PERCENT AUTO 21 % (21-46); MONOCYTES ABSOLUTE AUTO 0.59 K/mm3 (0.16-1.47); MONOCYTES PERCENT AUTO 9 % (4-13); Mean Corpuscular HGB 27.6 pg (26.0-34.0); Mean Corpuscular HGB Conc 31.4 g/dL (31.5-36.5); Mean Corpuscular Volume 88 fL (80-100); Mean Platelet Volume 11.1 fL (9.1-12.4); NEUTROPHILS ABSOLUTE AUTO 4.73 K/mm3 (1.96-9.15); NEUTROPHILS PERCENT AUTO 68 % (41-73); Platelet Count 202 K/mm3 (150-400); White Blood Cell Count 6.96 K/mm3 (4.00-11.30)
[2022-11-19 05:52] LABS: Bun/Creatinine Ratio 25.3 (12.0-20.0); Calcium, Blood 9.5 mg/dL (8.5-10.1); Creatinine, Blood 0.67 mg/dL (0.40-1.00); Potassium, Blood 3.4 mmol/L (3.5-5.5)
[2022-11-19 07:12] VITALS: BP 129/60
[2022-11-19 15:03] VITALS: BP 121/52
--- NOTE | 2022-11-19 19:39 | NUR ---
PT PLEASANTLY CONFUSED TODAY, ABLE TO TELL ME HER NAME AND , NOT AGE, HUSB NAME. KYPHOSIS NOTED. VSS. DENIES PAIN. PER SWALLOW EVAL, MEDS WHOLE WITH APPLESAUCE. DID GIVE K+ IV TODAY. IVF RUNNING. IN TO VISIT. NO OTHER CONCERNS NOTED. BED IN LOW POSITION, CALL LITE IN REACH. BED ALARM ON FOR SAFETY
[2022-11-19 20:21] VITALS: BP 126/58
--- NOTE | 2022-11-20 01:43 | NUR ---
PATIENT CONFUSED AND PULLED PIV. TRY TO GET OUT OF BED AND ALARM ACTIVATED. BACK IN BED AND NEW PIV PLACED. CALL LIGHT IN REACH AND BED ALARM ON. WCTM.
[2022-11-20 03:16] VITALS: BP 136/60
--- NOTE | 2022-11-20 04:19 | NUR ---
SHIFT SUMMARY PATIENT HAD NO ACUTE CHANGES. ALERT TO SELF WITH CONFUSION. OUT OF BED ATTEMPT X TWO. PULLED PIV AND NEW ONE PLACED. D5 INFUSING AT 100 mL/HR. TELE MONITOR NSR 69. PUREWICK IN PLACE. DENIES PAIN, SOB, AND N/V. VSS/AFEBRILE. CALL LIGHT IN REACH. BED IN LOWEST POSITION AND ALARM ACTIVATED. WILL CONTINUE TO MONITOR UNTIL DAY SHIFT NURSE ASSUMES CARE.
[2022-11-20 05:52] LABS: Bun/Creatinine Ratio 21.7 (12.0-20.0); Calcium, Blood 9.6 mg/dL (8.5-10.1); Creatinine, Blood 0.65 mg/dL (0.40-1.00); Phosphorus, Blood 1.7 mg/dL (2.5-4.9)
[2022-11-20 07:13] VITALS: BP 131/57
[2022-11-20 15:02] VITALS: BP 134/58
--- NOTE | 2022-11-20 18:49 | NUR ---
PT PLEASANTLY CONFUSED TODAY. DID IMPROVE COGNITION SOME TODAY. ABLE TO TELL ME NAME AGE , HUSB NAME, TODAYS DATE. PRESIDENT. STILL FEARFUL TO FALL WHEN WORKING WITH PT/OT. 1 MIN ASST FWW G BELT . IVF CONTINUING. NO NEW CONCERNS NOTED. BED IN LOW POSITION, CALL LITE IN REACH, BED ALARM ON FOR SAFETY
[2022-11-20 19:51] VITALS: BP 117/53
[2022-11-21 04:47] VITALS: BP 124/50
--- NOTE | 2022-11-21 05:06 | NUR ---
SHIFT SUMMARY- PT WAS ORIENTED AT THE START OF THE SHIFT. AFTER LIGHTS OUT SHE BECAME FEARFUL AND WAS CALLING OUT FOR HELP. MULTIPLE STAFF ASSISTED IN REORIENTING THE PT T/O THE NIGHT. PT REMOVED HER IV, IT WAS REPLACED, VEINS ARE ROLEY AND SMALL, DIFFICULT TO PLACE IV THE PT WAS CONFUSED AND WOULD NOT STOP MOVING. IV WRAPPED LOOSLY WITH COBAN, SHE WAS PULLING AT THAT, END OF COBAN WAS TAPED WITH PAPER TAPE, THEN A SLEVE WAS PLACED OVER THE TOP. PT FINALLY STOPPED TRYING TO REMOVE THE IV. D5 RUNNING CURRENTLY. PT IN BED SLEEPING NO S&S OF DISTRESS NOTED, CALL LIGHT IN REACH.
[2022-11-21 06:01] LABS: Albumin, Blood 2.5 g/dL (3.4-5.0); Anion Gap 6 mmol/L (6-16); Blood Urea Nitrogen 11 mg/dL (8-24); Bun/Creatinine Ratio 18.1 (12.0-20.0); CO2, Blood 24 mmol/L (21-32); Chloride, Blood 117 mmol/L (98-108); Creatinine, Blood 0.61 mg/dL (0.40-1.00); Glomerular Filtration Rate 91 (60-); Glucose, Blood 100 mg/dL (70-99); Phosphorus, Blood 2.4 mg/dL (2.5-4.9); Potassium, Blood 4.2 mmol/L (3.5-5.5); Sodium, Blood 147 mmol/L (136-145)
[2022-11-21 08:21] VITALS: BP 150/56
[2022-11-21 16:10] VITALS: BP 113/73
--- NOTE | 2022-11-21 16:41 | NUR ---
SUMMARY: PT PLEASANT CONFUSED TODAY. WORSENING AFTER 4PM. MORE CONFUSED. DENIES PAIN, REORIENTS EASILY, BUT NEEDS TO BE DONE REGULARLY. FEEDING SELF. 1 ASST TO BSC. PT ALEISHA LAST NITE AND EARLY THIS AM. AWOKE, SHE IMPROVED. SHE SLEPT LATE THIS AM. DISCUSSED WITH DR AMIN. JOSH D/C. NO OTHER CONCERNS NOTED. BED IN LOW POSITION, CALL LITE IN REACH, BED ALARM ON FOR SAFETY
[2022-11-21 19:08] VITALS: BP 137/65
[2022-11-22 02:13] VITALS: BP 145/104
[2022-11-22 05:16] LABS: Albumin, Blood 2.8 g/dL (3.4-5.0); Anion Gap 5 mmol/L (6-16); Blood Urea Nitrogen 7 mg/dL (8-24); Bun/Creatinine Ratio 12.1 (12.0-20.0); CO2, Blood 27 mmol/L (21-32); Calcium, Blood 9.9 mg/dL (8.5-10.1); Chloride, Blood 110 mmol/L (98-108); Creatinine, Blood 0.58 mg/dL (0.40-1.00); Glomerular Filtration Rate 93 (60-); Glucose, Blood 110 mg/dL (70-99); Magnesium, Blood 1.9 mg/dL (1.6-2.4); Phosphorus, Blood 2.2 mg/dL (2.5-4.9); Potassium, Blood 4.1 mmol/L (3.5-5.5); Sodium, Blood 142 mmol/L (136-145)
--- NOTE | 2022-11-22 07:59 | NUR ---
SHIFT SUMMARY- PT ALERT AND ORIENTED TO SELF AND FAMILY. SHE CALLS OUT FREQUENTLY T/O THE NIGHT AND PRESSES HER CALL LIGHT SOON STAFF LEAVE THE ROOM. PT HAS PULLED OUT MULTIPLE IVS. THIS MORNING SHE PULLED OUT THE MORE RECENT ONE. HOWEVER HER SODIUM HAS REACHED NORMAL, PASSED ON TO DAY RN TO ASK THE HOSPITALIST IF THE IV IS STILL NEEDED AT THIS TIME ( THE PT OBVIOUSLY DOES NOT WANT IT IN). BEDSIDE REPORT COMPLETED WITH THE NIGHT RN NO S&S OF DISTRESS NOTED.
[2022-11-22 08:25] VITALS: BP 136/58
[2022-11-22] MEDS ORDERED: MIRALAX17 GM PO (12:14)
[2022-11-22] MEDS ORDERED: DONE5 PO (12:17)
[2022-11-22] MEDS ORDERED: OLAN5A MM (12:18)
--- NOTE | 2022-11-22 14:31 | NUR ---
Patient up to Ambulate independently. Gait steady. Discharge instructions reviewed with patient. Patient verbalizes understanding. Copy given to patient to take home. Patient States Post-Procedure ride home has been arranged. Discharged via wheelchair to private car for ride home.THE PATIENT WAS DISCHARGED HOME WITH HER SPOUSE, AFTER DISCHARGE INSTRUCTIONS WERE GIVEN AND DICUSSES. THE PATIENT WAS WHEELED OUT TO THEIR CAR IN A WHEELCHAIR.
== END 2022-11-22 14:22 | disposition home health service (06) | DRG 682 ==
LOC: ER 16:10 → MEDS 16:11 → ER 16:11 → ERHOLD 16:11 → MEDS 22:43 → ERHOLD 11-18 10:59 → MEDS 11-18 10:59 → ENPENDDIS 11-22 10:57 → MEDS 11-22 14:22
PROVIDERS: Internal Medicine; Nurse Practitioner Acute Care; Physician Assistant; Student in an Organized Health Care Education/Training Program; ADMIT Internal Medicine
DX: N17.9 Acute kidney failure, unspecified (principal); G92.8 Other toxic encephalopathy; E87.0 Hyperosmolality and hypernatremia; E44.0 Moderate protein-calorie malnutrition; E87.1 Hypo-osmolality and hyponatremia; D62 Acute posthemorrhagic anemia; S00.31XA Abrasion of nose, initial encounter; S00.81XA Abrasion of other part of head, initial encounter; W18.30XA Fall on same level, unspecified, initial encounter; R13.10 Dysphagia, unspecified; E87.6 Hypokalemia; E86.0 Dehydration; F03.90 Unspecified dementia, unspecified severity, without behavioral disturbance, psychotic disturbance, mood disturbance, and anxiety; F31.9 Bipolar disorder, unspecified; M54.9 Dorsalgia, unspecified; G89.29 Other chronic pain; I10 Essential (primary) hypertension; T42.4X5A Adverse effect of benzodiazepines, initial encounter; E05.90 Thyrotoxicosis, unspecified without thyrotoxic crisis or storm; E83.39 Other disorders of phosphorus metabolism; Z96.651 Presence of right artificial knee joint; Z98.890 Other specified postprocedural states; Z88.2 Allergy status to sulfonamides; Z88.8 Allergy status to other drugs, medicaments and biological substances; Z79.890 Hormone replacement therapy; Z79.899 Other long term (current) drug therapy; E89.0 Postprocedural hypothyroidism; Z87.891 Personal history of nicotine dependence; Z68.23 Body mass index [BMI] 23.0-23.9, adult
CPT/HCPCS: 0202U; 36415; 70450; 71045; 80048; 80053; 80069; 80164; 81001; 82140; 83605; 83735; 83930; 83935; 84100; 84439; 84443; 85025; 85027; 87086; 90471; 90715; 92526; 92610; 93005; 93010; 96360; 96361; 96372; 97110; 97129; 97161; 97166; 97530; 97535; 99285-25; A9270; G0378; J1644; J3480; J7042; J7060; J7070; J7120